=== PATIENT | male | born 2000 | race African-American/Black ===

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

== ENCOUNTER 2021-08-22 22:05 | Emergency (ER) | payer SELFPAY ==
[~2021-08-22] VITALS: Ht 188 cm; Wt 113.0 kg
[2021-08-22 22:05] VITALS: BP 132/66
[~2021-08-22 22:05] MED LIST: CEPH500T PO; CETI10TA16 PO; MUPI15CR TP
[2021-08-22] MEDS ORDERED: IBUPROFEN 400 MG TABLET. PO ONE (22:45)
[2021-08-22] MEDS ORDERED: DIPHTH,PERTUSS(ACELL),TET TOX 0.5 ML DISP.SYRIN. VAX IM ONE (22:45)
[2021-08-22] MEDS ORDERED: LIDOCAINE/EPI/TETRACAINE TOPICAL GEL 3 ML. TP ONE (22:45)
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
== END 2021-08-22 23:36 | disposition home or self-care (01) ==
LOC: ER 22:05
DX: S01.81XA Laceration without foreign body of other part of head, initial encounter (principal); W22.8XXA Striking against or struck by other objects, initial encounter; Y93.89 Activity, other specified; Y92.89 Other specified places as the place of occurrence of the external cause; Y99.8 Other external cause status
CPT/HCPCS: 90471; 90715; 99283